=== PATIENT | female | born 1975 | race Caucasian/White ===

== ENCOUNTER 2019-06-09 17:16 | Emergency (ER) | payer OTHER ==
[~2019-06-09] VITALS: Ht 162.6 cm; Wt 81.7 kg
[2019-06-09] MEDS ORDERED: Sudogest60 MG PO (18:01)
[2019-06-09] MEDS ORDERED: Amoxicillin875 MG PO (18:01)
== END 2019-06-09 18:07 | disposition home or self-care (01) ==
LOC: ER 17:16
DX: H66.92 Otitis media, unspecified, left ear (principal); I10 Essential (primary) hypertension; F17.200 Nicotine dependence, unspecified, uncomplicated
CPT/HCPCS: 99282; A9270-GY

== ENCOUNTER 2019-09-17 13:46 | Emergency (ER) | payer OTHER ==
[~2019-09-17] VITALS: Ht 162.6 cm; Wt 86.2 kg
[~2019-09-17 13:46] MED LIST: Amoxicillin875 MG PO; Sudogest60 MG PO
[2019-09-17] MEDS ORDERED: [UNRECOGNIZED DRUG - OTHER] MC (14:09)
[2019-09-17] MEDS ORDERED: DOK100 MG PO (14:09)
[2019-09-17] MEDS ORDERED: Amphetamine Sal20 MG PO (14:09)
[2019-09-17] MEDS ORDERED: PRINIVIL10 MG PO (14:09)
[2019-09-17] MEDS ORDERED: ALPR.25 PO (14:09)
[2019-09-17] MEDS ORDERED: LATUDA80 MG PO (14:10)
[2019-09-17] MEDS ORDERED: BRINTELLIX5 MG PO (14:10)
[2019-09-17] MEDS ORDERED: OMEP20ER PO (14:10)
[2019-09-17 14:27] LABS: BASOPHILS ABSOLUTE AUTO 0.05 K/mm3 (0.00-0.23); BASOPHILS PERCENT AUTO 0 % (0-2); EOSINOPHILS ABSOLUTE AUTO 0.23 K/mm3 (0.00-0.68); EOSINOPHILS PERCENT AUTO 2 % (0-6); Hematocrit 43.7 % (33.0-51.0); Hemoglobin 14.5 g/dL (11.5-16.0); IMMATURE GRAN ABSOLUTE AUTO 0.03 K/mm3 (0.00-0.10); IMMATURE GRAN PERCENT AUTO 0 % (0-1); LYMPHOCYTES ABSOLUTE AUTO 4.48 K/mm3 (0.84-5.20); LYMPHOCYTES PERCENT AUTO 39 % (21-46); MONOCYTES ABSOLUTE AUTO 0.71 K/mm3 (0.16-1.47); MONOCYTES PERCENT AUTO 6 % (4-13); Mean Corpuscular HGB 29.9 pg (26.0-34.0); Mean Corpuscular HGB Conc 33.2 g/dL (31.5-36.5); Mean Corpuscular Volume 90 fL (80-100); Mean Platelet Volume 9.5 fL (9.1-12.4); NEUTROPHILS ABSOLUTE AUTO 6.06 K/mm3 (1.96-9.15); NEUTROPHILS PERCENT AUTO 52 % (41-73); Platelet Count 346 K/mm3 (150-400); RDW Coefficient Variation 13.6 % (11.7-14.2); RDW Standard Deviation 45.2 fL (35.1-46.3); Red Blood Cell Count 4.85 M/mm3 (3.80-5.20); White Blood Cell Count 11.56 K/mm3 (4.00-11.30)
[2019-09-17 15:05] LABS: Alanine Aminotransfer (ALT/SGP 36 U/L (12-78); Albumin, Blood 3.6 g/dL (3.4-5.0); Albumin/Globulin Ratio 0.9 (0.8-1.8); Alk Phos 101 U/L (50-136); Anion Gap 6 mmol/L (6-16); Aspartate Aminotrans (AST/SGOT 18 U/L (12-37); Bilirubin, Total 0.4 mg/dL (0.1-1.0); Blood Urea Nitrogen 13 mg/dL (8-24); CO2, Blood 26 mmol/L (21-32); Calcium, Blood 9.3 mg/dL (8.5-10.1); Chloride, Blood 104 mmol/L (98-108); Creatinine, Blood 0.81 mg/dL (0.40-1.00); Glomerular Filtration Rate >60 (60-); Glucose, Blood 62 mg/dL (70-99); Potassium, Blood 3.3 mmol/L (3.5-5.5); Sodium, Blood 136 mmol/L (136-145); Total Protein, Blood 7.6 g/dL (6.4-8.2)
[2019-09-17 15:08] LABS: Thyroid Stimulating Hormone 0.981 uIU/mL (0.360-4.800)
[2019-09-17] MEDS ORDERED: Hydroxyzine HCl50 MG PO (16:28)
== END 2019-09-17 16:45 | disposition home or self-care (01) ==
LOC: ER 13:46
PROVIDERS: Physician Assistant
DX: F41.9 Anxiety disorder, unspecified (principal); L53.9 Erythematous condition, unspecified; H92.09 Otalgia, unspecified ear; F17.200 Nicotine dependence, unspecified, uncomplicated; Z79.899 Other long term (current) drug therapy
CPT/HCPCS: 36415; 80053; 84443; 85025; 93005; 93010; 99283-25

== ENCOUNTER 2023-06-05 17:10 | Emergency (ER) | payer OTHER ==
[~2023-06-05] VITALS: Ht 162.6 cm; Wt 86.2 kg
[~2023-06-05 17:10] MED LIST changes: +ALPR.25 PO; +Amphetamine Sal20 MG PO; +BRINTELLIX5 MG PO; +DOK100 MG PO; +Hydroxyzine HCl50 MG PO; +LATUDA80 MG PO; +OMEP20ER PO; +PRINIVIL10 MG PO; +[UNRECOGNIZED DRUG - OTHER] MC
[2023-06-05 17:55] LABS: BASOPHILS ABSOLUTE AUTO 0.06 K/mm3 (0.00-0.23); BASOPHILS PERCENT AUTO 1 % (0-2); EOSINOPHILS ABSOLUTE AUTO 0.29 K/mm3 (0.00-0.68); EOSINOPHILS PERCENT AUTO 3 % (0-6); Hematocrit 38.2 % (33.0-51.0); Hemoglobin 13.4 g/dL (11.5-16.0); IMMATURE GRAN ABSOLUTE AUTO 0.03 K/mm3 (0.00-0.10); IMMATURE GRAN PERCENT AUTO 0 % (0-1); LYMPHOCYTES ABSOLUTE AUTO 3.94 K/mm3 (0.84-5.20); LYMPHOCYTES PERCENT AUTO 41 % (21-46); MONOCYTES ABSOLUTE AUTO 0.46 K/mm3 (0.16-1.47); MONOCYTES PERCENT AUTO 5 % (4-13); Mean Corpuscular HGB 29.8 pg (26.0-34.0); Mean Corpuscular HGB Conc 35.1 g/dL (31.5-36.5); Mean Corpuscular Volume 85 fL (80-100); Mean Platelet Volume 9.6 fL (9.1-12.4); NEUTROPHILS PERCENT AUTO 51 % (41-73); Platelet Count 260 K/mm3 (150-400); RDW Coefficient Variation 12.6 % (11.7-14.2); Red Blood Cell Count 4.49 M/mm3 (3.80-5.20); White Blood Cell Count 9.68 K/mm3 (4.00-11.30)
[2023-06-05 18:16] LABS: Albumin, Blood 3.3 g/dL (3.4-5.0); Albumin/Globulin Ratio 0.9 (0.8-1.8); Bilirubin, Total 0.5 mg/dL (0.1-1.0); Bun/Creatinine Ratio 17.8 (12.0-20.0); Calcium, Blood 8.7 mg/dL (8.5-10.1); Creatinine, Blood 0.73 mg/dL (0.40-1.00); Globulin, Blood 3.6 g/dL (2.2-4.0); Potassium, Blood 3.6 mmol/L (3.5-5.5); Total Protein, Blood 6.9 g/dL (6.4-8.2)
[2023-06-06 00:15] VITALS: BP 139/94
== END 2023-06-06 00:28 | disposition home or self-care (01) ==
LOC: ER 17:10
PROVIDERS: Physician Assistant
DX: M79.602 Pain in left arm (principal); I10 Essential (primary) hypertension; F17.210 Nicotine dependence, cigarettes, uncomplicated; Z79.899 Other long term (current) drug therapy
CPT/HCPCS: 71046; 80053; 84484; 85025; 93005; 93010; 99284-25; A9270